=== PATIENT | male | born 1965 | race Caucasian/White ===

== ENCOUNTER 2018-08-22 07:40 | Emergency (ER) | payer OTHER ==
[~2018-08-22] VITALS: Ht 188 cm; Wt 96.1 kg
[~2018-08-22 07:40] MED LIST: CHOL200024 PO; ESOM40CA PO; MULT-642 PO; OMEG1CAP23 PO; ROSU10TA2 PO; UBID100C24 PO; VITA400C42 PO; [UNRECOGNIZED DRUG - OTHER] PO
--- NOTE | 2018-08-22 08:20 | NUR ---
PATIENT PRESENTS TO ED TODAY FOR SHARP LT SHOULDER PAIN WITH NAUSEA AND CHEST TIGHTNESS, DENIES SOB, CARDIAC HX OF SVT WITH ABLATION, LOOP RECORDER. 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 CALL LIGHT WITHIN REACH.
[2018-08-22] MEDS ORDERED: CYCLOBENZAPRINE 10 MG TABLET ONE (08:29)
[2018-08-22] MEDS ORDERED: ONDANSETRON ODT 4 MG ONE (08:29)
[2018-08-22] MEDS ORDERED: KETOROLAC 30 MG/1 ML ONE (08:29)
[2018-08-22] MEDS ORDERED: CYCLOBENZAPRINE 10 MG TABLET PO SCH (08:30)
[2018-08-22] MEDS ORDERED: ONDANSETRON ODT 4 MG PO ONE (08:30)
[2018-08-22] MEDS ORDERED: KETOROLAC 30 MG/1 ML IM ONE (08:30)
--- NOTE | 2018-08-22 08:35 | NUR ---
PATIENT AMB WITH STEADY GAIT WITH COST AND SALES RECORD SUPERVISOR TO GET XRAY.
[2018-08-22 08:48] LABS: BASOPHILS # (AUTO) 0.01 x10^3/uL (0-0.1); BASOPHILS % (AUTO) 0 % (0-1); EOSINOPHILS # (AUTO) 0.01 x10^3/uL (0-0.4); EOSINOPHILS % (AUTO) 0 % (1-7); LYMPHOCYTES # (AUTO) 0.89 x10^3/uL (1-3.4); LYMPHOCYTES % (AUTO) 8 % (22-44); MD NO; MEAN CORPUSCULAR HEMOGLOBIN 31.4 pg (27.5-34.5); MEAN CORPUSCULAR HGB CONC 33.1 g/dL (33.2-36.2); MEAN CORPUSCULAR VOLUME 94.7 fL (81-97); MEAN PLATELET VOLUME 7.6 fL (7.4-10.4); MONOCYTES # (AUTO) 0.43 x10^3/uL (0.2-0.8); MONOCYTES % (AUTO) 4 % (2-9); NEUTROPHILS # (AUTO) 9.73 x10^3/uL (1.8-6.8); NEUTROPHILS % (AUTO) 88 % (42-75); PLATELET COUNT 199 x10^3/uL (130-400); RED BLOOD COUNT 4.75 x10^6/uL (4.38-5.82); RED CELL DISTRIBUTION WIDTH 13.9 % (9.4-14.8)
[2018-08-22 08:51] LABS: ALANINE AMINOTRANSFERASE 34 U/L (12-78); ALBUMIN 4.1 g/dL (3.4-5.0); ANION GAP 7 mmol/L (5-15); CALCIUM 8.7 mg/dL (8.5-10.1); CHLORIDE 109 mmol/L (98-107); CREATININE 1.23 mg/dL (0.7-1.3)
[2018-08-22 08:55] LABS: ALKALINE PHOSPHATASE 40 U/L (45-117); BILIRUBIN,TOTAL 0.3 mg/dL (0.2-1.0); TOTAL PROTEIN 7.8 g/dL (6.4-8.2); TROPONIN I < 0.015 ng/mL (0.000-0.045)
[2018-08-22] MEDS ORDERED: NITROGLYCERIN SINGLE TAB 0.4 MG SL ONE ×2 (09:09→09:30)
[2018-08-22 09:12] VITALS: BP 128/82
--- NOTE | 2018-08-22 09:20 | NUR ---
NEW ORDERS, NITRO ADMINISTERED PER ORDER. RESULTS BACK, CHART UP FOR RECHECK.
--- NOTE | 2018-08-22 09:32 | NUR ---
MD AT BEDSIDE, PATIENT NOT WANTING TO BE ADMITTED PER CONVERSATION WITH MD. PATIENT INSTRUCTED REGARDING NEED FOR OBSERVATION, PATIENT WANTING TO GO TO [facility] TODAY, PATIENT AGREES TO COME BACK IF SYMPTOMS GET WORSE.
--- NOTE | 2018-08-22 09:35 | NUR ---
Patient/Caregiver given discharge instructions and they have confirmed that they understand the instructions. Patient ambulatory with steady gait.
== END 2018-08-22 09:38 | disposition home or self-care (01) ==
LOC: ED 09:32
DX: R07.2 Precordial pain (principal); E78.5 Hyperlipidemia, unspecified
CPT/HCPCS: 36415; 71046; 80053; 84484; 85025; 85379; 93005; 96372; 99284; J1885; Q0162